=== PATIENT | female | born 1935 | race Caucasian/White ===

== ENCOUNTER 2017-07-10 17:56 | Emergency (ER) | payer MEDICARE, BC ==
[~2017-07-10] VITALS: Ht 160 cm; Wt 46.7 kg
[2017-07-10] MEDS ORDERED: CEPHALEXIN MONOHYDRATE 500 MG CAPSULE PO ONE (18:45)
[2017-07-10] MEDS ORDERED: TDAP DIPH,PERTUSS,TET VAC/PF 0.5 ML DISP.SYRIN IM ONE ×2 (18:45→19:20)
--- NOTE | 2017-07-10 19:02 | NUR ---
PT IS IN ROOM #2A. DR BERGERON EVALUATED THE PT.
--- NOTE | 2017-07-10 19:09 | NUR ---
REPORT GIVEN TO [employer].
[2017-07-10] MEDS ORDERED: CEPHALEXIN MONOHYDRATE 500 MG CAPSULE ONE (19:19)
--- NOTE | 2017-07-10 20:10 | NUR ---
Patient discharged to home in stable conditon. Written and verbal after care instructions given. Patient verbalizes understanding of instructions. Patient able to ambulate unassisted with steady gait. Patient left with all personal belongings.
[2017-07-10 20:55] VITALS: BP 122/76
== END 2017-07-10 20:10 | disposition home or self-care (01) ==
LOC: ER 17:58
DX: S01.01XA Laceration without foreign body of scalp, initial encounter (principal); E78.00 Pure hypercholesterolemia, unspecified; W22.8XXA Striking against or struck by other objects, initial encounter; Y93.89 Activity, other specified; Y92.89 Other specified places as the place of occurrence of the external cause; Y99.8 Other external cause status
CPT/HCPCS: 70450; 90715; A4217; A4663; J3490